=== PATIENT | female | born 1950 | race African-American/Black ===

== ENCOUNTER 2016-09-06 10:29 | Emergency (ER) | payer MEDICARE, MEDICAID ==
[~2016-09-06] VITALS: Ht 162.6 cm; Wt 118.0 kg
[~2016-09-06 10:29] MED LIST: ACET-3161; DIPH25CA83 PO; ENAL20TA; HYDR-2510
[2016-09-06] MEDS ORDERED: KETOROLAC 60MG/2ML VIAL IM ONE (11:30)
[2016-09-06 13:32] VITALS: BP 165/88
== END 2016-09-06 13:52 | disposition home or self-care (01) ==
LOC: ER 10:29
DX: M17.0 Bilateral primary osteoarthritis of knee (principal); I10 Essential (primary) hypertension; Z88.6 Allergy status to analgesic agent
CPT/HCPCS: 73560; 96372; 99284; J1885

== ENCOUNTER 2016-10-15 09:53 | Emergency (ER) | payer MEDICARE, MEDICAID ==
[~2016-10-15] VITALS: Ht 162.6 cm; Wt 121.0 kg
[2016-10-15 10:34] VITALS: BP 163/96
[2016-10-15] MEDS ORDERED: ACETAMINOPHEN 325MG TABLET PO ONE (14:15)
[2016-10-15] MEDS ORDERED: ONDANSETRON 4MG ODT PO ONE (14:30)
== END 2016-10-15 15:47 | disposition home or self-care (01) ==
LOC: ER 13:33
DX: B34.9 Viral infection, unspecified (principal); Z88.6 Allergy status to analgesic agent; Z79.899 Other long term (current) drug therapy; M19.90 Unspecified osteoarthritis, unspecified site; I10 Essential (primary) hypertension
CPT/HCPCS: 99283; Q0162

== ENCOUNTER 2017-02-06 11:34 | Inpatient (IN) | payer MEDICARE, MEDICAID ==
[~2017-02-06] VITALS: Ht 165.1 cm; Wt 113.4 kg
[2017-02-06] MEDS ORDERED: SODIUM CHLORIDE 0.9% 1,000 ML IV ONE (12:21)
[2017-02-06] MEDS ORDERED: MORPHINE SULFATE 4 MG/ML CPJ (NOT FOR IM USE) IV STA (12:21)
[2017-02-06] MEDS ORDERED: ONDANSETRON HCL 4MG/2ML VIAL IV STA (12:21)
[2017-02-06] MEDS ORDERED: FAMOTIDINE 20MG/2ML VIAL IV STA (12:21)
[2017-02-06 12:44] LABS: BASOPHILS % 0.7 % (0.0-2.0); EOSINOPHILS % 2.6 % (0.0-5.0); HEMATOCRIT. 32.5 % (36.0-48.0); HEMOGLOBIN. 10.7 g/dL (12.0-16.0); LYMPHOCYTES % 20.3 % (20.0-50.0); MEAN CORPUSCULAR HEMOGLOBIN 24.7 pg (28.0-32.0); MEAN CORPUSCULAR VOLUME 74.7 fL (81.0-99.0); MEAN PLATELET VOLUME 6.9 fl (7.4-10.4); MONOCYTES % 4.8 % (2.0-8.0); NEUTROPHILS % 71.6 % (40.0-76.0); PLATELET 218 x1000/uL (130-400); RED BLOOD CELL COUNT 4.35 mill/uL (4.2-5.4); RED CELL DISTRIBUTION WIDTH 14.7 % (11.6-14.6)
[2017-02-06 12:55] LABS: D-DIMER 0.87 mg/L FEU (<0.50); PROTHROMBIN TIME 10.9 sec (9.4-11.6)
[2017-02-06 13:01] LABS: CARBON DIOXIDE 29 mEq/L (21-32); CHLORIDE 107 mEq/L (98-107); TROPONIN I < 0.02 ng/mL (0.00-0.04)
[2017-02-06 13:29] LABS: CLARITY URINE CLEAR (CLEAR); COLOR URINE YELLOW (YELLOW); GLUCOSE URINE NEGATIVE (NEGATIVE); KETONES URINE NEGATIVE (NEGATIVE); LEUKOCYTE ESTERASE URINE 1+ (NEGATIVE); NITRITE URINE NEGATIVE (NEGATIVE); OCCULT BLOOD URINE NEGATIVE (NEGATIVE); PH URINE 6.5 (4.5-8.0); PROTEIN URINE NEGATIVE (NEGATIVE); SPECIFIC GRAVITY URINE 1.012 (1.005-1.030); UROBILINOGEN URINE 0.2 E.U./dL (0.2-1.0)
[2017-02-06 13:45] LABS: *AMPHETAMINES SCREEN URINE NEGATIVE (NEGATIVE); *BARBITURATES SCREEN URINE NEGATIVE (NEGATIVE); *BENZODIAZEPINES SCREEN URINE NEGATIVE (NEGATIVE); *COCAINE SCREEN URINE NEGATIVE (NEGATIVE); CANNABINOID URINE SCREEN NEGATIVE (NEGATIVE); METHADONE URINE SCREEN NEGATIVE (NEGATIVE); OPIATES URINE SCREEN PRESUMTIVE POSITIVE (NEGATIVE); PHENCYCLIDINE URINE SCREEN NEGATIVE (NEGATIVE)
[2017-02-06] MEDS ORDERED: METOCLOPRAMIDE HCL 10MG/2ML VIAL IV ONE (16:30)
[2017-02-06] MEDS ORDERED: MORPHINE SULFATE 4 MG/ML CPJ (NOT FOR IM USE) IV ONE (16:30)
[2017-02-06 17:00] VITALS: BP 165/78
[2017-02-06 17:10] VITALS: BP 165/75
[2017-02-06] MEDS ORDERED: DIPH25CA83 PO (17:23)
[2017-02-06] MEDS ORDERED: LISI10TA5 PO (17:23)
[2017-02-06] MEDS ORDERED: TRAM50TA3 PO (17:23)
[2017-02-06] MEDS ORDERED: HYDR-2510 PO (17:23)
[2017-02-06] MEDS ORDERED: AMLO10TA80 PO (17:23)
[2017-02-06] MEDS ORDERED: MAGNESIUM/ALUMINUM HYDROXIDE/SIMETHICONE 30ML UDC PO PRN (18:30)
[2017-02-06] MEDS ORDERED: ONDANSETRON HCL 4MG/2ML VIAL IV PRN (18:30)
[2017-02-06] MEDS ORDERED: CLONIDINE 0.1MG TABLET PO PRN (18:30)
[2017-02-06] MEDS ORDERED: IPRATROPIUM/ALBUTEROL 0.5-3(2.5)MG/3ML NEB INH PRN (18:30)
[2017-02-06] MEDS ORDERED: NA PHOS,M-B/NA PHOS,DI-BA ENEMA 118ML PR PRN (18:30)
[2017-02-06] MEDS ORDERED: GUAIFENESIN 200MG/10ML SUGAR FREE UDC PO PRN (18:30)
[2017-02-06] MEDS ORDERED: ACETAMINOPHEN 650MG/20.3ML UDC GT PRN (18:30)
[2017-02-06] MEDS ORDERED: DIPHENHYDRAMINE 25MG CAPSULE PO PRN (18:30)
[2017-02-06] MEDS ORDERED: DOCUSATE SODIUM 100MG CAPSULE PO PRN (18:30)
[2017-02-06] MEDS ORDERED: ACETAMINOPHEN 650MG SUPP PR PRN (18:30)
[2017-02-06] MEDS ORDERED: HYDROCHLOROTHIAZIDE 50MG TABLET PO SCH (18:30)
[2017-02-06] MEDS ORDERED: ACETAMINOPHEN 325MG TABLET PO PRN (18:30)
[2017-02-06] MEDS: FAMOTIDINE 20MG/2ML VIAL IV SCH (18:47)
[2017-02-06] MEDS: AMLODIPINE 10MG TABLET PO SCH (18:47)
[2017-02-06] MEDS: LISINOPRIL 10MG TABLET PO SCH (18:47)
[2017-02-06] MEDS: TRAMADOL 50MG TABLET PO PRN (18:47)
[2017-02-06 20:00] VITALS: BP 152/76
[2017-02-06] MEDS: LEVOFLOXACIN 500MG PREMIX 100 ML IV SCH (21:20)
[2017-02-06] MEDS: HYDROCHLOROTHIAZIDE 50MG TABLET PO SCH (21:20)
[2017-02-06] MEDS: SODIUM CHLORIDE 0.9% INJ 3ML FLUSH IVF SCH (21:21)
[2017-02-06] MEDS: SODIUM CHLORIDE 0.45% 1,000 ML IV SCH (21:21)
[2017-02-06 23:03] LABS: CREATINE KINASE 184 IU/L (26-192); TROPONIN I < 0.02 ng/mL (0.00-0.04)
[2017-02-06] MEDS: METOCLOPRAMIDE HCL 10MG/2ML VIAL IV SCH (23:17)
[2017-02-06] MEDS: DIPHENHYDRAMINE 50MG/ML VIAL IV PRN (23:17)
[2017-02-07] VITALS: BP 145/83
[2017-02-07] MEDS: METOCLOPRAMIDE HCL 10MG/2ML VIAL IV SCH ×4 (06:40→23:26)
[2017-02-07] MEDS: SODIUM CHLORIDE 0.9% INJ 3ML FLUSH IVF SCH ×3 (06:40→22:03)
[2017-02-07 07:47] LABS: BASOPHILS % 0.8 % (0.0-2.0); EOSINOPHILS % 1.8 % (0.0-5.0); HEMATOCRIT. 34.4 % (36.0-48.0); HEMOGLOBIN. 11.3 g/dL (12.0-16.0); LYMPHOCYTES % 29.1 % (20.0-50.0); MEAN CORPUSCULAR HEMOGLOBIN 24.8 pg (28.0-32.0); MEAN CORPUSCULAR VOLUME 75.5 fL (81.0-99.0); MEAN PLATELET VOLUME 7.4 fl (7.4-10.4); MONOCYTES % 6.9 % (2.0-8.0); NEUTROPHILS % 61.4 % (40.0-76.0); PLATELET 214 x1000/uL (130-400); RED BLOOD CELL COUNT 4.56 mill/uL (4.2-5.4); RED CELL DISTRIBUTION WIDTH 14.7 % (11.6-14.6)
[2017-02-07] MEDS: LISINOPRIL 10MG TABLET PO SCH (08:17)
[2017-02-07] MEDS: HYDROCHLOROTHIAZIDE 50MG TABLET PO SCH (08:17)
[2017-02-07] MEDS: ENOXAPARIN 40MG/0.4ML SYR SUBCUT SCH ×2 (08:17→21:00)
[2017-02-07] MEDS: FAMOTIDINE 20MG/2ML VIAL IV SCH (08:17)
[2017-02-07] MEDS: AMLODIPINE 10MG TABLET PO SCH (08:17)
[2017-02-07] MEDS: SODIUM CHLORIDE 0.45% 1,000 ML IV SCH ×2 (08:18→23:26)
[2017-02-07 08:21] LABS: CHLORIDE 103 mEq/L (98-107)
[2017-02-07 08:32] LABS: CARBON DIOXIDE 28 mEq/L (21-32); CREATINE KINASE 130 IU/L (26-192); HDL CHOLESTEROL 54 mg/dL (40-59); LDL CHOLESTEROL 99 mg/dL (5-100); TROPONIN I < 0.02 ng/mL (0.00-0.04)
[2017-02-07 08:40] VITALS: BP 140/83
[2017-02-07 12:00] VITALS: BP 136/81
[2017-02-07 16:02] VITALS: BP 127/79
[2017-02-07] MEDS: DIPHENHYDRAMINE 50MG/ML VIAL IV PRN ×2 (17:17→22:37)
[2017-02-07 20:00] VITALS: BP 196/102
[2017-02-07] MEDS: LEVOFLOXACIN 500MG PREMIX 100 ML IV SCH (22:01)
[2017-02-07] MEDS: TRAMADOL 50MG TABLET PO PRN (23:44)
[2017-02-08] VITALS: BP 176/101
[2017-02-08 04:00] VITALS: BP 132/80
[2017-02-08] MEDS: SODIUM CHLORIDE 0.9% INJ 3ML FLUSH IVF SCH ×2 (05:46→16:07)
[2017-02-08] MEDS: METOCLOPRAMIDE HCL 10MG/2ML VIAL IV SCH ×3 (05:46→17:12)
[2017-02-08] MEDS: SODIUM CHLORIDE 0.45% 1,000 ML IV SCH (08:32)
[2017-02-08] MEDS: AMLODIPINE 10MG TABLET PO SCH (08:33)
[2017-02-08] MEDS: FAMOTIDINE 20MG/2ML VIAL IV SCH (08:33)
[2017-02-08] MEDS: HYDROCHLOROTHIAZIDE 50MG TABLET PO SCH (08:33)
[2017-02-08] MEDS: LISINOPRIL 10MG TABLET PO SCH (08:33)
[2017-02-08] MEDS: ENOXAPARIN 40MG/0.4ML SYR SUBCUT SCH (08:53)
[2017-02-08] MEDS: TRAMADOL 50MG TABLET PO PRN (11:59)
[2017-02-08 14:55] VITALS: BP 126/83
[2017-02-08] MEDS ORDERED: LEVOFLOXACIN 500MG TABLET PO SCH (15:00)
[2017-02-08 16:42] VITALS: BP 117/71
== END 2017-02-08 18:50 | disposition home or self-care (01) ==
LOC: ER 12:06 → 8WST 12:26 → EDBEDREQSVC 16:17 → EDBEDREQTM 16:17 → EDBEDREQ 16:17
PROVIDERS: ADMIT Family Medicine; ATTEND Family Medicine
DX: K80.10 Calculus of gallbladder with chronic cholecystitis without obstruction (principal); Z68.41 Body mass index [BMI] 40.0-44.9, adult; I10 Essential (primary) hypertension; D63.8 Anemia in other chronic diseases classified elsewhere; M19.90 Unspecified osteoarthritis, unspecified site; Z88.6 Allergy status to analgesic agent; Z79.899 Other long term (current) drug therapy; Z88.8 Allergy status to other drugs, medicaments and biological substances
CPT/HCPCS: 36415; 71010; 74176; 76705; 80053; 80061; 80305; 81001; 82550; 83605; 83690; 83880; 84484; 85025; 85379; 85610; 87040; 87086; 93005; 93970; 96361; 96374; 96375; 99285; J1200; J1650; J1956; J2270; J2405; J2765; J3490; J7030; Q0163

== ENCOUNTER 2017-08-22 09:50 | Emergency (ER) | payer MEDICARE, MEDICAID ==
[~2017-08-22] VITALS: Ht 162.6 cm; Wt 120.0 kg
[~2017-08-22 09:50] MED LIST changes: +AMLO10TA80 PO; +HYDR-2510 PO; +LISI10TA5 PO; +TRAM50TA3 PO
[2017-08-22] MEDS ORDERED: AMLODIPINE 10MG TABLET PO ONE (10:30)
[2017-08-22] MEDS ORDERED: TRAMADOL 50MG TABLET PO ONE (10:30)
[2017-08-22 11:57] VITALS: BP 147/87
== END 2017-08-22 11:59 | disposition home or self-care (01) ==
LOC: ER 09:50
DX: M79.89 Other specified soft tissue disorders (principal); M79.604 Pain in right leg; M79.605 Pain in left leg; I10 Essential (primary) hypertension; M19.90 Unspecified osteoarthritis, unspecified site; Z88.5 Allergy status to narcotic agent; Z88.8 Allergy status to other drugs, medicaments and biological substances
CPT/HCPCS: 93970; 99284

== ENCOUNTER 2017-11-21 11:19 | Emergency (ER) | payer OTHER, MEDICAID ==
[~2017-11-21] VITALS: Ht 162.6 cm; Wt 116.0 kg
[2017-11-21] MEDS ORDERED: KETOROLAC 60MG/2ML VIAL IM ONE (17:15)
[2017-11-21] MEDS ORDERED: FAMOTIDINE 20MG/2ML VIAL IV STA (19:17)
[2017-11-21] MEDS ORDERED: SODIUM CHLORIDE 0.9% 1,000 ML IV ONE (19:17)
[2017-11-21] MEDS ORDERED: ONDANSETRON HCL 4MG/2ML VIAL IV STA (19:17)
[2017-11-21 20:32] LABS: CLARITY URINE CLEAR (CLEAR); COLOR URINE YELLOW (YELLOW); KETONES URINE NEGATIVE (NEGATIVE); LEUKOCYTE ESTERASE URINE 1+ (NEGATIVE); NITRITE URINE NEGATIVE (NEGATIVE); OCCULT BLOOD URINE NEGATIVE (NEGATIVE); PH URINE 5.5 (4.5-8.0); PROTEIN URINE NEGATIVE (NEGATIVE); SPECIFIC GRAVITY URINE 1.016 (1.005-1.030)
[2017-11-21 20:45] LABS: METHADONE URINE SCREEN NEGATIVE (NEGATIVE)
[2017-11-21 20:46] LABS: *AMPHETAMINES SCREEN URINE NEGATIVE (NEGATIVE); *BARBITURATES SCREEN URINE NEGATIVE (NEGATIVE); *BENZODIAZEPINES SCREEN URINE NEGATIVE (NEGATIVE); *COCAINE SCREEN URINE NEGATIVE (NEGATIVE); CANNABINOID URINE SCREEN NEGATIVE (NEGATIVE); OPIATES URINE SCREEN NEGATIVE (NEGATIVE); PHENCYCLIDINE URINE SCREEN NEGATIVE (NEGATIVE)
[2017-11-21] MEDS ORDERED: LEVOFLOXACIN 750MG PREMIX 150 ML IV ONE (22:15)
[2017-11-21 22:37] LABS: BASOPHILS % 0.9 % (0.0-2.0); HEMATOCRIT. 35.3 % (36.0-48.0); HEMOGLOBIN. 11.6 g/dL (12.0-16.0); LYMPHOCYTES % 27.6 % (20.0-50.0); MEAN CORPUSCULAR HEMOGLOBIN 24.7 pg (28.0-32.0); MEAN CORPUSCULAR VOLUME 74.9 fL (81.0-99.0); MEAN PLATELET VOLUME 7.1 fl (7.4-10.4); MONOCYTES % 12.1 % (2.0-8.0); NEUTROPHILS % 56.4 % (40.0-76.0); PLATELET 219 x1000/uL (130-400); RED BLOOD CELL COUNT 4.71 mill/uL (4.2-5.4); RED CELL DISTRIBUTION WIDTH 15.8 % (11.6-14.6)
[2017-11-21 22:41] LABS: INR 1.1; PROTHROMBIN TIME 11.2 sec (9.4-11.6)
[2017-11-21 22:46] LABS: CHLORIDE 105 mEq/L (98-107)
[2017-11-21 22:50] LABS: ETHANOL BLOOD < 10 mg/dL
[2017-11-21] MEDS ORDERED: DICYCLOMINE HCL 10MG CAPSULE PO ONE (23:45)
[2017-11-22] VITALS: BP 130/62
[2017-11-22] MEDS ORDERED: RALTEGRAVIR 400MG TABLET PO ONE (00:30)
[2017-11-22] MEDS ORDERED: EMTRICITABINE 200MG CAPSULE PO ONE (00:30)
[2017-11-22] MEDS ORDERED: TENOFOVIR 300MG TABLET PO ONE (00:30)
[2017-11-22] MEDS ORDERED: DICYCLOMINE HCL 20MG TABLET PO SCH (00:45)
== END 2017-11-22 01:00 | disposition home or self-care (01) ==
LOC: ER 11:19
DX: N39.0 Urinary tract infection, site not specified (principal); I10 Essential (primary) hypertension; J45.909 Unspecified asthma, uncomplicated; M19.90 Unspecified osteoarthritis, unspecified site; Z88.6 Allergy status to analgesic agent; Z79.899 Other long term (current) drug therapy; Z88.8 Allergy status to other drugs, medicaments and biological substances
CPT/HCPCS: 36415; 71045; 74176; 76705; 80053; 80305; 81003; 83605; 83690; 83880; 84484; 85025; 85610; 87040; 87086; 93005; 96361; 96365; 96372; 96375; 99285; G0482; J1885; J1956; J2405; J3490; J7030

== ENCOUNTER 2017-12-16 22:27 | Emergency (ER) | payer OTHER, MEDICAID ==
[~2017-12-16] VITALS: Ht 162.6 cm; Wt 116.0 kg
[2017-12-17] MEDS ORDERED: ACETAMINOPHEN WITH CODEINE 300/30MG TABLET PO ONE (01:15)
[2017-12-17] MEDS ORDERED: CLONIDINE 0.1MG TABLET PO ONE (02:00)
[2017-12-17 04:40] VITALS: BP 177/92
== END 2017-12-17 04:45 | disposition home or self-care (01) ==
LOC: ER 22:27
DX: G89.29 Other chronic pain (principal); M54.5 Low back pain; M54.30 Sciatica, unspecified side; I10 Essential (primary) hypertension; E11.9 Type 2 diabetes mellitus without complications; M19.90 Unspecified osteoarthritis, unspecified site; E66.9 Obesity, unspecified; Z68.41 Body mass index [BMI] 40.0-44.9, adult; Z98.51 Tubal ligation status; Z98.890 Other specified postprocedural states; Z88.6 Allergy status to analgesic agent
CPT/HCPCS: 93971; 99284

== ENCOUNTER 2018-02-03 10:52 | Emergency (ER) | payer OTHER, MEDICAID ==
[~2018-02-03] VITALS: Ht 170.2 cm; Wt 117.7 kg
[2018-02-03] MEDS ORDERED: ACETAMINOPHEN 500MG TABLET PO ONE (13:45)
[2018-02-03 14:23] LABS: BASOPHILS % 0.8 % (0.0-2.0); CHLORIDE 104 mEq/L (98-107); EOSINOPHILS % 2.6 % (0.0-5.0); HEMATOCRIT. 36.4 % (36.0-48.0); LYMPHOCYTES % 30.1 % (20.0-50.0); MEAN CORPUSCULAR HEMOGLOBIN 25.3 pg (28.0-32.0); MEAN CORPUSCULAR VOLUME 76.3 fL (81.0-99.0); MEAN PLATELET VOLUME 7.3 fl (7.4-10.4); MONOCYTES % 6.5 % (2.0-8.0); PLATELET 272 x1000/uL (130-400); PROTHROMBIN TIME 10.1 sec (9.1-11.1); RED BLOOD CELL COUNT 4.77 mill/uL (4.2-5.4); RED CELL DISTRIBUTION WIDTH 15.5 % (11.6-14.6)
[2018-02-03] MEDS ORDERED: CLONIDINE 0.1MG TABLET PO ONE (15:45)
[2018-02-03 16:32] VITALS: BP 193/102
== END 2018-02-03 16:34 | disposition home or self-care (01) ==
LOC: ER 12:45
DX: M25.562 Pain in left knee (principal); M79.605 Pain in left leg; M54.5 Low back pain; M54.30 Sciatica, unspecified side; I10 Essential (primary) hypertension; E11.9 Type 2 diabetes mellitus without complications; M19.90 Unspecified osteoarthritis, unspecified site; Z98.51 Tubal ligation status; Z88.6 Allergy status to analgesic agent; Z79.01 Long term (current) use of anticoagulants
CPT/HCPCS: 36415; 73562; 80053; 85025; 85610; 93971; 99285

== ENCOUNTER 2018-06-08 15:12 | Emergency (ER) | payer MEDICARE, MEDICAID ==
[~2018-06-08] VITALS: Ht 162.6 cm; Wt 117.0 kg
[2018-06-08 19:50] VITALS: BP 174/98
== END 2018-06-08 20:56 | disposition home or self-care (01) ==
LOC: ER 15:12
DX: R21 Rash and other nonspecific skin eruption (principal); I10 Essential (primary) hypertension; Z98.51 Tubal ligation status; Z79.899 Other long term (current) drug therapy; Z88.6 Allergy status to analgesic agent; Z88.5 Allergy status to narcotic agent
CPT/HCPCS: 99283

== ENCOUNTER 2018-07-03 10:11 | Emergency (ER) | payer MEDICARE, MEDICAID ==
[~2018-07-03] VITALS: Ht 162.6 cm; Wt 117.0 kg
[2018-07-03] MEDS ORDERED: MECLIZINE 12.5MG TABLET PO ONE (14:15)
[2018-07-03 15:14] VITALS: BP 181/75
== END 2018-07-03 15:14 | disposition home or self-care (01) ==
LOC: ER 10:31
DX: T16.2XXA Foreign body in left ear, initial encounter (principal); X58.XXXA Exposure to other specified factors, initial encounter; Y93.89 Activity, other specified; Y92.89 Other specified places as the place of occurrence of the external cause
CPT/HCPCS: 69200; 99284; J8597

== ENCOUNTER 2018-09-17 15:30 | Inpatient (IN) | payer MEDICARE, MEDICAID ==
[~2018-09-17] VITALS: Ht 162.6 cm; Wt 117.0 kg
[~2018-09-17 15:30] MED LIST changes: -ACET-3161; +ACET-3161 PO
[2018-09-17] MEDS ORDERED: FUROSEMIDE 40MG/4ML VIAL IVP ONE (16:30)
[2018-09-17 16:58] LABS: BASOPHILS % 1.4 % (0.0-2.0); EOSINOPHILS % 5.6 % (0.0-5.0); HEMATOCRIT. 34.7 % (36.0-48.0); HEMOGLOBIN. 11.3 g/dL (12.0-16.0); LYMPHOCYTES % 31.7 % (20.0-50.0); MEAN CORPUSCULAR HEMOGLOBIN 24.4 pg (28.0-32.0); MEAN CORPUSCULAR VOLUME 74.9 fL (81.0-99.0); MONOCYTES % 7.8 % (2.0-8.0); NEUTROPHILS % 53.5 % (40.0-76.0); PLATELET 214 x1000/uL (130-400); RED BLOOD CELL COUNT 4.64 mill/uL (4.2-5.4); RED CELL DISTRIBUTION WIDTH 15.2 % (11.6-14.6)
[2018-09-17 17:05] LABS: CHLORIDE 109 mEq/L (98-107)
[2018-09-17] MEDS ORDERED: MORPHINE SULFATE 4 MG/ML CPJ (NOT FOR IM USE) IV ONE (20:00)
[2018-09-17] MEDS ORDERED: IPRATROPIUM/ALBUTEROL 0.5-3(2.5)MG/3ML NEB INH PRN (20:45)
[2018-09-17] MEDS ORDERED: MAGNESIUM/ALUMINUM HYDROXIDE/SIMETHICONE 30ML UDC PO PRN (20:45)
[2018-09-17] MEDS ORDERED: LORAZEPAM 0.5MG TABLET PO PRN (20:45)
[2018-09-17] MEDS ORDERED: NA PHOS,M-B/NA PHOS,DI-BA ENEMA 118ML PR PRN (20:45)
[2018-09-17] MEDS ORDERED: NITROGLYCERIN 0.4MG TABLET SL SL PRN (20:45)
[2018-09-17] MEDS ORDERED: DIPHENHYDRAMINE 50MG/ML VIAL IV PRN (20:45)
[2018-09-17] MEDS ORDERED: ACETAMINOPHEN 325MG TABLET PO PRN (20:45)
[2018-09-17] MEDS ORDERED: DOCUSATE SODIUM 100MG CAPSULE PO PRN (20:45)
[2018-09-17] MEDS ORDERED: ONDANSETRON HCL 4MG/2ML INJ IV PRN (20:45)
[2018-09-17] MEDS ORDERED: ZOLPIDEM TARTRATE 5MG TABLET PO PRN (20:45)
[2018-09-17] MEDS ORDERED: CLONIDINE 0.1MG TABLET PO PRN (20:45)
[2018-09-17] MEDS ORDERED: TRAMADOL 50MG TABLET PO PRN (20:45)
[2018-09-17] MEDS ORDERED: GUAIFENESIN 200MG/10ML SUGAR FREE UDC PO PRN (20:45)
[2018-09-17 21:06] LABS: T4 FREE 1.11 ng/dL (0.76-1.46)
[2018-09-17 21:38] LABS: FOLIC ACID (FOLATE) SERUM 8.6 ng/mL (>5.38)
[2018-09-17] MEDS ORDERED: METOPROLOL TARTRATE 25MG TABLET PO NR (21:45)
[2018-09-17] MEDS ORDERED: SPIRONOLACTONE 25MG TABLET PO NR (21:45)
[2018-09-17] MEDS ORDERED: LISINOPRIL 20MG TABLET PO NR (21:45)
[2018-09-17 23:25] LABS: CREATINE KINASE 197 IU/L (26-192)
[2018-09-17 23:26] LABS: CREATINE KINASE MB FRACTION 2.9 ng/mL (0.5-3.6)
[2018-09-18] VITALS (7 sets, daily range): BP systolic 126–183; BP diastolic 62–98
[2018-09-18 07:13] LABS: CREATINE KINASE 211 IU/L (26-192)
[2018-09-18 07:14] LABS: CREATINE KINASE MB FRACTION 2.9 ng/mL (0.5-3.6)
[2018-09-18] MEDS: FUROSEMIDE 40MG/4ML VIAL IVP SCH ×2 (09:22→22:30)
[2018-09-18] MEDS: SPIRONOLACTONE 25MG TABLET PO SCH ×2 (09:22→22:31)
[2018-09-18] MEDS: METOPROLOL TARTRATE 25MG TABLET PO SCH ×2 (09:22→22:31)
[2018-09-18] MEDS: LISINOPRIL 20MG TABLET PO SCH ×2 (09:23→22:31)
[2018-09-18] MEDS: ENOXAPARIN 30MG/0.3ML SYR SUBCUT SCH ×2 (09:23→22:32)
[2018-09-18] MEDS: MORPHINE SULFATE 4 MG/ML CPJ (NOT FOR IM USE) IV PRN ×2 (13:34→22:45)
[2018-09-19] VITALS: BP 151/92
[2018-09-19 04:00] VITALS: BP 136/82
[2018-09-19 08:04] VITALS: BP 128/70
[2018-09-19] MEDS: ENOXAPARIN 30MG/0.3ML SYR SUBCUT SCH ×2 (08:45→21:59)
[2018-09-19] MEDS: METOPROLOL TARTRATE 25MG TABLET PO SCH ×2 (08:45→21:00)
[2018-09-19] MEDS: FUROSEMIDE 40MG/4ML VIAL IVP SCH ×2 (08:45→21:59)
[2018-09-19] MEDS: LISINOPRIL 20MG TABLET PO SCH ×2 (08:45→21:59)
[2018-09-19] MEDS: SPIRONOLACTONE 25MG TABLET PO SCH ×2 (08:45→21:59)
[2018-09-19 11:53] VITALS: BP 109/74
[2018-09-19] MEDS: MORPHINE SULFATE 4 MG/ML CPJ (NOT FOR IM USE) IV PRN ×2 (13:46→21:59)
[2018-09-19 16:00] VITALS: BP 97/64
[2018-09-19 20:00] VITALS: BP 148/72
[2018-09-20 00:25] VITALS: BP 139/76
[2018-09-20 04:00] VITALS: BP 152/82
[2018-09-20 08:00] VITALS: BP 125/69
[2018-09-20] MEDS: METOPROLOL TARTRATE 25MG TABLET PO SCH (08:14)
[2018-09-20] MEDS: LISINOPRIL 20MG TABLET PO SCH (08:16)
[2018-09-20] MEDS: FUROSEMIDE 40MG/4ML VIAL IVP SCH (08:36)
[2018-09-20] MEDS: SPIRONOLACTONE 25MG TABLET PO SCH (08:36)
[2018-09-20] MEDS: ENOXAPARIN 30MG/0.3ML SYR SUBCUT SCH (08:36)
[2018-09-20 12:43] VITALS: BP 134/73
[2018-09-20 14:43] VITALS: BP 134/73
== END 2018-09-20 16:10 | disposition home or self-care (01) | DRG 194 ==
LOC: ER 15:30 → SUPCPDRO 20:32 → 6WST 22:01 → EDBEDREQ 22:06 → EDBEDREQTM 22:06 → ENRESERV 22:16
PROVIDERS: ADMIT Internal Medicine; ATTEND Internal Medicine
DX: I11.0 Hypertensive heart disease with heart failure (principal); E66.01 Morbid (severe) obesity due to excess calories; I50.43 Acute on chronic combined systolic (congestive) and diastolic (congestive) heart failure; M19.90 Unspecified osteoarthritis, unspecified site; R26.2 Difficulty in walking, not elsewhere classified; D64.9 Anemia, unspecified; Z68.41 Body mass index [BMI] 40.0-44.9, adult; Z79.899 Other long term (current) drug therapy; Z98.51 Tubal ligation status; Z88.6 Allergy status to analgesic agent; Z88.8 Allergy status to other drugs, medicaments and biological substances
CPT/HCPCS: 36415; 71045; 80061; 82550; 82553; 82607; 82746; 83036; 83540; 83550; 83880; 84439; 84443; 84484; 93005; 93306; 93970; 99285; J1650; J1940; J2270

== ENCOUNTER 2018-10-02 23:03 | Emergency (ER) | payer MEDICARE, MEDICAID ==
[~2018-10-02] VITALS: Ht 162.6 cm; Wt 132.0 kg
[~2018-10-02 23:03] MED LIST changes: -AMLO10TA80 PO; -ENAL20TA; -HYDR-2510; -HYDR-2510 PO; -TRAM50TA3 PO
[2018-10-03] MEDS ORDERED: FUROSEMIDE 40MG/4ML VIAL IV ONE (01:30)
[2018-10-03 01:53] LABS: EOSINOPHILS % 4.9 % (0.0-5.0); HEMATOCRIT. 36.5 % (36.0-48.0); HEMOGLOBIN. 11.9 g/dL (12.0-16.0); LYMPHOCYTES % 29.5 % (20.0-50.0); MEAN CORPUSCULAR HEMOGLOBIN 24.5 pg (28.0-32.0); MEAN CORPUSCULAR VOLUME 75.1 fL (81.0-99.0); MEAN PLATELET VOLUME 7.6 fl (7.4-10.4); NEUTROPHILS % 54.6 % (40.0-76.0); PLATELET 229 x1000/uL (130-400); RED BLOOD CELL COUNT 4.86 mill/uL (4.2-5.4); RED CELL DISTRIBUTION WIDTH 15.5 % (11.6-14.6)
[2018-10-03 01:56] LABS: CHLORIDE 109 mEq/L (98-107)
[2018-10-03] MEDS ORDERED: ACETAMINOPHEN 650MG/20.3ML UDC PO ONE (03:00)
[2018-10-03 03:57] VITALS: BP 159/89
== END 2018-10-03 04:02 | disposition home or self-care (01) ==
LOC: ER 23:03
DX: M79.662 Pain in left lower leg (principal); J45.909 Unspecified asthma, uncomplicated; I11.0 Hypertensive heart disease with heart failure; I50.9 Heart failure, unspecified; Z98.51 Tubal ligation status; Z98.890 Other specified postprocedural states; Z88.5 Allergy status to narcotic agent
CPT/HCPCS: 36415; 71045; 80053; 83880; 84484; 85025; 93005; 96374; 99284; J1940

== ENCOUNTER 2018-10-16 09:18 | Emergency (ER) | payer MEDICARE, MEDICAID ==
[~2018-10-16] VITALS: Ht 162.6 cm; Wt 111.0 kg
[2018-10-16] MEDS ORDERED: SODIUM CHLORIDE 0.9% 1,000 ML IV ONE (10:35)
[2018-10-16 11:10] LABS: EOSINOPHILS % 4.8 % (0.0-5.0); HEMATOCRIT. 34.8 % (36.0-48.0); HEMOGLOBIN. 11.3 g/dL (12.0-16.0); LYMPHOCYTES % 28.1 % (20.0-50.0); MEAN CORPUSCULAR HEMOGLOBIN 24.3 pg (28.0-32.0); MEAN CORPUSCULAR VOLUME 75.1 fL (81.0-99.0); MONOCYTES % 7.4 % (2.0-8.0); NEUTROPHILS % 58.7 % (40.0-76.0); PLATELET 215 x1000/uL (130-400); RED BLOOD CELL COUNT 4.64 mill/uL (4.2-5.4); RED CELL DISTRIBUTION WIDTH 15.8 % (11.6-14.6)
[2018-10-16 11:16] LABS: CHLORIDE 108 mEq/L (98-107)
[2018-10-16 12:10] LABS: CLARITY URINE CLEAR (CLEAR); COLOR URINE YELLOW (YELLOW); KETONES URINE NEGATIVE (NEGATIVE); LEUKOCYTE ESTERASE URINE TRACE (NEGATIVE); NITRITE URINE NEGATIVE (NEGATIVE); OCCULT BLOOD URINE NEGATIVE (NEGATIVE); PH URINE 6.5 (4.5-8.0); PROTEIN URINE NEGATIVE (NEGATIVE); SPECIFIC GRAVITY URINE 1.015 (1.005-1.030)
[2018-10-16] MEDS ORDERED: IOHEXOL-300 100 ML BOTTLE ONE (13:40)
[2018-10-16 18:28] VITALS: BP 148/85
== END 2018-10-16 18:40 | disposition home or self-care (01) ==
LOC: ER 09:58
DX: R10.30 Lower abdominal pain, unspecified (principal); R19.7 Diarrhea, unspecified; I10 Essential (primary) hypertension
CPT/HCPCS: 36415; 74177; 80053; 81003; 83690; 84484; 85025; 96360; 96361; 99284; J7030; Q9967

== ENCOUNTER 2018-12-15 17:05 | Emergency (ER) | payer MEDICARE, MEDICAID ==
[~2018-12-15] VITALS: Ht 162.6 cm; Wt 117.0 kg
[2018-12-15] MEDS ORDERED: ACETAMINOPHEN 325MG TABLET PO ONE (20:15)
[2018-12-15 22:23] VITALS: BP 129/90
== END 2018-12-15 23:01 | disposition home or self-care (01) ==
LOC: ER 17:05
DX: M72.2 Plantar fascial fibromatosis (principal); M17.12 Unilateral primary osteoarthritis, left knee
CPT/HCPCS: 73560; 73630; 99283

== ENCOUNTER 2018-12-30 10:05 | Emergency (ER) | payer MEDICARE, MEDICAID ==
[~2018-12-30] VITALS: Ht 162.6 cm; Wt 117.0 kg
[2018-12-30] MEDS ORDERED: ALBUTEROL (0.083%) 2.5MG/3ML NEB HHN STA (10:52)
[2018-12-30] MEDS ORDERED: IPRATROPIUM BROMIDE (0.02%) 0.5MG/2.5ML NEB HHN STA (10:52)
[2018-12-30 11:45] VITALS: BP 170/104
== END 2018-12-30 11:46 | disposition home or self-care (01) ==
LOC: ER 10:05
DX: J06.9 Acute upper respiratory infection, unspecified (principal); I10 Essential (primary) hypertension
CPT/HCPCS: 71045; 93005; 94640; 99283; J7611

== ENCOUNTER 2019-02-01 11:08 | Inpatient (IN) | payer MEDICARE, MEDICAID ==
[~2019-02-01] VITALS: Ht 162.6 cm; Wt 123.4 kg
[2019-02-01] MEDS ORDERED: PREDNISONE 20MG TABLET PO STA (12:34)
[2019-02-01] MEDS ORDERED: ALBUTEROL (0.083%) 2.5MG/3ML NEB HHN STA (12:34)
[2019-02-01 14:19] LABS: EOSINOPHILS % 5.2 % (0.0-5.0); HEMATOCRIT. 33.8 % (36.0-48.0); MEAN CORPUSCULAR HEMOGLOBIN 24.8 pg (28.0-32.0); MEAN CORPUSCULAR VOLUME 75.6 fL (81.0-99.0); MEAN PLATELET VOLUME 7.4 fl (7.4-10.4); MONOCYTES % 7.1 % (2.0-8.0); NEUTROPHILS % 51.7 % (40.0-76.0); PLATELET 227 x1000/uL (130-400); RED BLOOD CELL COUNT 4.46 mill/uL (4.2-5.4)
[2019-02-01 14:27] LABS: CHLORIDE 108 mEq/L (98-107)
[2019-02-01] MEDS ORDERED: ONDANSETRON HCL 4MG/2ML INJ IV PRN (21:30)
[2019-02-01] MEDS ORDERED: IPRATROPIUM/ALBUTEROL 0.5-3(2.5)MG/3ML NEB HHN PRN (21:30)
[2019-02-01] MEDS ORDERED: HYDROCODONE/ACETAMINOPHEN 5/325MG TABLET PO PRN (21:30)
[2019-02-01] MEDS ORDERED: ACETAMINOPHEN 325MG TABLET PO PRN (21:30)
[2019-02-01 22:00] VITALS: BP 175/71
[2019-02-01] MEDS: CLONIDINE 0.1MG TABLET PO PRN (22:53)
[2019-02-01] MEDS: ENOXAPARIN 30MG/0.3ML SYR SUBCUT SCH (22:55)
[2019-02-02] VITALS: BP 168/70
[2019-02-02 00:23] LABS: CREATINE KINASE 163 IU/L (26-192)
[2019-02-02 04:00] VITALS: BP 168/72
[2019-02-02] MEDS: CLONIDINE 0.1MG TABLET PO PRN (05:50)
[2019-02-02 05:54] LABS: BASOPHILS % 0.4 % (0.0-2.0); HEMATOCRIT. 33.1 % (36.0-48.0); MEAN CORPUSCULAR HEMOGLOBIN 25.1 pg (28.0-32.0); MEAN CORPUSCULAR VOLUME 75.6 fL (81.0-99.0); MEAN PLATELET VOLUME 7.8 fl (7.4-10.4); MONOCYTES % 3.6 % (2.0-8.0); PLATELET 230 x1000/uL (130-400); RED BLOOD CELL COUNT 4.38 mill/uL (4.2-5.4); RED CELL DISTRIBUTION WIDTH 15.2 % (11.6-14.6)
[2019-02-02 06:19] LABS: CHLORIDE 108 mEq/L (98-107)
[2019-02-02 06:50] LABS: LDL CHOLESTEROL 119 mg/dL (5-100)
[2019-02-02 06:51] LABS: CREATINE KINASE 148 IU/L (26-192)
[2019-02-02 07:04] LABS: HDL CHOLESTEROL 68 mg/dL (40-59); T4 FREE 0.98 ng/dL (0.76-1.46)
[2019-02-02 08:00] VITALS: BP 140/93
[2019-02-02] MEDS: ENOXAPARIN 30MG/0.3ML SYR SUBCUT SCH ×2 (09:37→20:59)
[2019-02-02 12:00] VITALS: BP 126/82
[2019-02-02] MEDS ORDERED: LACTULOSE 20G/30ML UDC PO PRN (14:15)
[2019-02-02] MEDS ORDERED: BUDESONIDE 0.5MG/2ML NEB HHN SCH (14:15)
[2019-02-02] MEDS ORDERED: DIPHENHYDRAMINE 50MG/ML VIAL IV PRN (14:15)
[2019-02-02] MEDS ORDERED: FUROSEMIDE 40MG/4ML VIAL IVP NR (14:30)
[2019-02-02 15:28] LABS: BG CARBOXYHEMOGLOBIN 0.3 % (0.5-1.5); BG FRACTION INSPIRED OXYGEN 21; BG HCO3 ACT 26.4 mmol/L (22.0-26.0); BG METHEMOGLOBIN 0.2 % (0.0-1.5); BG OXYHEMOGLOBIN 96.5 % (94.0-97.0); BG PCO2 40.5 mmHg (35.0-45.0); BG PH 7.432 (7.350-7.450); BG PO2 91.8 mmHg (75.0-100.0); BG SAMPLE SITE RIGHT RADIAL; BG TOTAL HEMOGLOBIN 11.7 g/dL (12.0-18.0); BG VENT MODE ROOM AIR
[2019-02-02] MEDS ORDERED: BUDESONIDE 0.5MG/2ML NEB HHN NR (15:30)
[2019-02-02 16:00] VITALS: BP 162/99
[2019-02-02] MEDS: LORATADINE 10MG TABLET PO SCH (16:19)
[2019-02-02] MEDS: AZITHROMYCIN 500 MG TABLET PO SCH (16:19)
[2019-02-02] MEDS: FAMOTIDINE 20MG/2ML VIAL IV SCH (16:19)
[2019-02-02] MEDS: LOSARTAN POTASSIUM 25 MG TABLET PO SCH (16:20)
[2019-02-02 16:42] LABS: CLARITY URINE CLOUDY (CLEAR); COLOR URINE YELLOW (YELLOW); KETONES URINE TRACE (NEGATIVE); LEUKOCYTE ESTERASE URINE 1+ (NEGATIVE); NITRITE URINE NEGATIVE (NEGATIVE); OCCULT BLOOD URINE NEGATIVE (NEGATIVE); PROTEIN URINE NEGATIVE (NEGATIVE); SPECIFIC GRAVITY URINE 1.017 (1.005-1.030)
[2019-02-02 17:04] LABS: *AMPHETAMINES SCREEN URINE NEGATIVE (NEGATIVE); *BARBITURATES SCREEN URINE NEGATIVE (NEGATIVE); *BENZODIAZEPINES SCREEN URINE NEGATIVE (NEGATIVE); *COCAINE SCREEN URINE NEGATIVE (NEGATIVE); METHADONE URINE SCREEN NEGATIVE (NEGATIVE); OPIATES URINE SCREEN NEGATIVE (NEGATIVE)
[2019-02-02 17:05] LABS: CANNABINOID URINE SCREEN NEGATIVE (NEGATIVE); PHENCYCLIDINE URINE SCREEN NEGATIVE (NEGATIVE)
[2019-02-02] MEDS: CEFTRIAXONE 1 G PREMIX 50 ML IV SCH (17:38)
[2019-02-02] MEDS: METHYLPREDNISOLONE SOD SUCC 40 MG/ML VIAL IV SCH (17:40)
[2019-02-02 20:00] VITALS: BP 150/94
[2019-02-02] MEDS: IPRATROPIUM/ALBUTEROL 0.5-3(2.5)MG/3ML NEB HHN SCH (20:44)
[2019-02-02] MEDS: ATORVASTATIN CALCIUM 20MG TABLET PO SCH (21:00)
[2019-02-02] MEDS: MONTELUKAST SODIUM 10MG TABLET PO SCH (21:00)
[2019-02-03] VITALS: BP 130/79
[2019-02-03] MEDS: IPRATROPIUM/ALBUTEROL 0.5-3(2.5)MG/3ML NEB HHN SCH ×7 (00:49→23:46)
[2019-02-03 04:00] VITALS: BP 149/87
[2019-02-03 05:59] LABS: CHLORIDE 105 mEq/L (98-107)
[2019-02-03] MEDS: METHYLPREDNISOLONE SOD SUCC 40 MG/ML VIAL IV SCH ×2 (06:00→17:11)
[2019-02-03 06:33] LABS: BASOPHILS % 0.3 % (0.0-2.0); HEMATOCRIT. 33.8 % (36.0-48.0); HEMOGLOBIN. 11.5 g/dL (12.0-16.0); LYMPHOCYTES % 8.7 % (20.0-50.0); MEAN CORPUSCULAR HEMOGLOBIN 25.4 pg (28.0-32.0); MEAN CORPUSCULAR VOLUME 74.9 fL (81.0-99.0); MEAN PLATELET VOLUME 7.7 fl (7.4-10.4); MONOCYTES % 1.6 % (2.0-8.0); NEUTROPHILS % 89.4 % (40.0-76.0); PLATELET 267 x1000/uL (130-400); RED BLOOD CELL COUNT 4.51 mill/uL (4.2-5.4); RED CELL DISTRIBUTION WIDTH 14.6 % (11.6-14.6)
[2019-02-03 08:00] VITALS: BP 125/69
[2019-02-03] MEDS: BUDESONIDE 0.5MG/2ML NEB HHN SCH ×2 (08:30→19:53)
[2019-02-03] MEDS: FAMOTIDINE 20MG/2ML VIAL IV SCH (09:00)
[2019-02-03] MEDS: LORATADINE 10MG TABLET PO SCH (09:01)
[2019-02-03] MEDS: LOSARTAN POTASSIUM 25 MG TABLET PO SCH (09:01)
[2019-02-03] MEDS: ENOXAPARIN 30MG/0.3ML SYR SUBCUT SCH ×2 (09:01→20:58)
[2019-02-03 12:00] VITALS: BP 131/70
[2019-02-03] MEDS: CEFTRIAXONE 1 G PREMIX 50 ML IV SCH (16:00)
[2019-02-03 16:02] VITALS: BP 137/76
[2019-02-03] MEDS: AZITHROMYCIN 500 MG TABLET PO SCH (17:11)
[2019-02-03 20:00] VITALS: BP 134/62
[2019-02-03] MEDS: ATORVASTATIN CALCIUM 20MG TABLET PO SCH (20:58)
[2019-02-03] MEDS: MONTELUKAST SODIUM 10MG TABLET PO SCH (20:58)
[2019-02-04] VITALS (7 sets, daily range): BP systolic 137–181; BP diastolic 69–101
[2019-02-04] MEDS: IPRATROPIUM/ALBUTEROL 0.5-3(2.5)MG/3ML NEB HHN SCH ×4 (04:19→18:00)
[2019-02-04] MEDS: METHYLPREDNISOLONE SOD SUCC 40 MG/ML VIAL IV SCH ×2 (05:47→18:00)
[2019-02-04] MEDS: BUDESONIDE 0.5MG/2ML NEB HHN SCH (08:58)
[2019-02-04] MEDS: FAMOTIDINE 20MG/2ML VIAL IV SCH ×2 (09:00→09:15)
[2019-02-04] MEDS: LORATADINE 10MG TABLET PO SCH (09:15)
[2019-02-04] MEDS: LOSARTAN POTASSIUM 25 MG TABLET PO SCH (09:15)
[2019-02-04] MEDS: ENOXAPARIN 30MG/0.3ML SYR SUBCUT SCH ×2 (09:16→20:29)
[2019-02-04] MEDS: CEFTRIAXONE 1 G PREMIX 50 ML IV SCH (16:00)
[2019-02-04] MEDS: CLONIDINE 0.1MG TABLET PO PRN (16:35)
[2019-02-04] MEDS: AZITHROMYCIN 500 MG TABLET PO SCH (16:36)
[2019-02-04] MEDS: MONTELUKAST SODIUM 10MG TABLET PO SCH (20:29)
[2019-02-04] MEDS: ATORVASTATIN CALCIUM 20MG TABLET PO SCH (20:29)
== END 2019-02-04 20:55 | disposition home or self-care (01) | DRG 190 ==
LOC: ER 14:07 → 8WST 18:30 → ENRESERV 20:06
PROVIDERS: ADMIT Internal Medicine; ATTEND Internal Medicine
DX: J44.1 Chronic obstructive pulmonary disease with (acute) exacerbation (principal); I50.33 Acute on chronic diastolic (congestive) heart failure; J45.901 Unspecified asthma with (acute) exacerbation; Z68.42 Body mass index [BMI] 45.0-49.9, adult; I11.0 Hypertensive heart disease with heart failure; F32.9 Major depressive disorder, single episode, unspecified; D64.9 Anemia, unspecified; E78.5 Hyperlipidemia, unspecified; E86.0 Dehydration; Z88.9 Allergy status to unspecified drugs, medicaments and biological substances; Z87.891 Personal history of nicotine dependence; Z88.5 Allergy status to narcotic agent; E66.01 Morbid (severe) obesity due to excess calories
CPT/HCPCS: 36415; 36600; 71045; 80048; 80061; 80305; 81003; 82375; 82550; 82805; 83880; 84439; 84443; 84484; 93005; 94640; 97161; 99285; C1893; J0696; J1650; J1940; J2920; J3490; J7040; J7512; J7611; J7620; J7626

== ENCOUNTER 2019-03-16 17:48 | Emergency (ER) | payer MEDICARE, MEDICAID ==
[~2019-03-16] VITALS: Ht 165.1 cm; Wt 104.0 kg
[2019-03-16] MEDS ORDERED: ONDANSETRON HCL 4MG/2ML INJ IV STA (19:37)
[2019-03-16 20:45] LABS: BASOPHILS % 0.7 % (0.0-2.0); EOSINOPHILS % 1.1 % (0.0-5.0); HEMATOCRIT. 36.2 % (36.0-48.0); HEMOGLOBIN. 11.8 g/dL (12.0-16.0); LYMPHOCYTES % 20.1 % (20.0-50.0); MEAN CORPUSCULAR HEMOGLOBIN 24.6 pg (28.0-32.0); MEAN PLATELET VOLUME 7.6 fl (7.4-10.4); MONOCYTES % 7.6 % (2.0-8.0); NEUTROPHILS % 70.5 % (40.0-76.0); PLATELET 245 x1000/uL (130-400); RED BLOOD CELL COUNT 4.82 mill/uL (4.2-5.4); RED CELL DISTRIBUTION WIDTH 15.1 % (11.6-14.6)
[2019-03-16 20:46] LABS: CHLORIDE 109 mEq/L (98-107)
[2019-03-16] MEDS ORDERED: HYDROCODONE/ACETAMINOPHEN 5/325MG TABLET PO ONE (21:15)
[2019-03-16] MEDS ORDERED: KETOROLAC 30MG/ML VIAL IV ONE (21:15)
[2019-03-16 23:35] VITALS: BP 146/91
== END 2019-03-16 23:55 | disposition home or self-care (01) ==
LOC: ER 17:48
DX: R11.0 Nausea (principal); M79.605 Pain in left leg; M79.604 Pain in right leg; R53.1 Weakness; R03.0 Elevated blood-pressure reading, without diagnosis of hypertension
CPT/HCPCS: 36415; 71045; 74018; 80053; 83690; 83880; 84484; 85025; 93005; 96374; 96375; 99284; J1885; J2405

== ENCOUNTER 2019-04-29 18:40 | Emergency (ER) | payer MEDICARE, MEDICAID ==
[~2019-04-29] VITALS: Ht 162.6 cm; Wt 121.0 kg
[~2019-04-29 18:40] MED LIST changes: +ALBU90AE INH; +APIX5TAB MT; +FURO-152 MT; +FURO-152 PO; +LEVO500T2 MT; -LISI10TA5 PO; +LOSA25TA3 MT
[2019-04-29] MEDS ORDERED: DIPHENHYDRAMINE 25MG CAPSULE PO ONE (23:15)
[2019-04-29] MEDS ORDERED: KETOROLAC 60MG/2ML VIAL IM ONE (23:15)
[2019-04-29] MEDS ORDERED: PROCHLORPERAZINE MALEATE 10MG TABLET PO ONE (23:15)
[2019-04-30 02:06] VITALS: BP 145/81
== END 2019-04-30 02:09 | disposition home or self-care (01) ==
LOC: ER 18:40
DX: R51 Headache (principal); I10 Essential (primary) hypertension
CPT/HCPCS: 70450; 96372; 99284; J1885; Q0163; Q0164

== ENCOUNTER 2019-12-11 14:43 | Inpatient (IN) | payer MEDICARE, MEDICAID ==
[~2019-12-11] VITALS: Ht 160 cm; Wt 126.6 kg
[2019-12-11] MEDS ORDERED: METHYLPREDNISOLONE SOD SUCC 125 MG/2 ML VIAL IV STA (15:09)
[2019-12-11] MEDS ORDERED: ALBUTEROL 6.7GM HFA INHALER ORI ONE ×3 (15:15)
[2019-12-11 15:50] LABS: BASOPHILS % 0.5 % (0.0-2.0); EOSINOPHILS % 3.2 % (0.0-5.0); HEMATOCRIT. 36.3 % (36.0-48.0); LYMPHOCYTES % 30.5 % (20.0-50.0); MEAN CORPUSCULAR HEMOGLOBIN 25.3 pg (28.0-32.0); MEAN CORPUSCULAR VOLUME 76.1 fL (81.0-99.0); MEAN PLATELET VOLUME 6.6 fl (7.4-10.4); MONOCYTES % 7.1 % (2.0-8.0); NEUTROPHILS % 58.7 % (40.0-76.0); PLATELET 229 x1000/uL (130-400); RED BLOOD CELL COUNT 4.77 mill/uL (4.2-5.4); RED CELL DISTRIBUTION WIDTH 15.6 % (11.6-14.6)
[2019-12-11 16:00] LABS: PROTHROMBIN TIME 10.8 sec (9.6-11.0)
[2019-12-11 16:01] LABS: CHLORIDE 107 mEq/L (98-107)
[2019-12-11] MEDS ORDERED: CLOPIDOGREL 75MG TABLET PO ONE (17:30)
[2019-12-11] MEDS ORDERED: CLONIDINE 0.1MG TABLET PO ONE (21:15)
[2019-12-11] MEDS ORDERED: HYDROCODONE/ACETAMINOPHEN 5/325MG TABLET PO PRN (21:45)
[2019-12-11] MEDS ORDERED: CEFTRIAXONE 1 G PREMIX 50 ML IV SCH (21:45)
[2019-12-11] MEDS ORDERED: ACETAMINOPHEN 325MG TABLET PO PRN (21:45)
[2019-12-11] MEDS ORDERED: ONDANSETRON HCL 4MG/2ML INJ IV PRN (21:45)
[2019-12-11] MEDS: APIXABAN 5 MG TABLET PO SCH (23:42)
[2019-12-11] MEDS: METHYLPREDNISOLONE SOD SUCC 40 MG/ML VIAL IV SCH (23:42)
[2019-12-11] MEDS: FAMOTIDINE 20MG TABLET PO SCH (23:42)
[2019-12-12] MEDS ORDERED: IPRATROPIUM/ALBUTEROL 0.5-3(2.5)MG/3ML NEB HHN SCH (09:00)
[2019-12-12] MEDS: METHYLPREDNISOLONE SOD SUCC 40 MG/ML VIAL IV SCH ×3 (09:30→21:45)
[2019-12-12] MEDS: APIXABAN 5 MG TABLET PO SCH ×2 (09:30→16:41)
[2019-12-12] MEDS: MULTIVITAMINS,THER W-MINERALS TABLET PO SCH (09:31)
[2019-12-12] MEDS: ASPIRIN 81MG EC TABLET PO SCH (09:31)
[2019-12-12] MEDS: LOSARTAN POTASSIUM 50 MG TABLET PO SCH ×2 (09:31→21:36)
[2019-12-12] MEDS: FAMOTIDINE 20MG TABLET PO SCH ×2 (09:31→21:35)
[2019-12-12 11:20] LABS: BASOPHILS % 0.2 % (0.0-2.0); HEMATOCRIT. 36.7 % (36.0-48.0); HEMOGLOBIN. 11.9 g/dL (12.0-16.0); LYMPHOCYTES % 16.6 % (20.0-50.0); MEAN CORPUSCULAR HEMOGLOBIN 24.8 pg (28.0-32.0); MEAN CORPUSCULAR VOLUME 76.1 fL (81.0-99.0); MEAN PLATELET VOLUME 6.8 fl (7.4-10.4); MONOCYTES % 1.4 % (2.0-8.0); NEUTROPHILS % 81.8 % (40.0-76.0); PLATELET 241 x1000/uL (130-400); RED BLOOD CELL COUNT 4.82 mill/uL (4.2-5.4); RED CELL DISTRIBUTION WIDTH 15.5 % (11.6-14.6)
[2019-12-12 11:21] VITALS: BP 190/81
[2019-12-12 11:53] LABS: CHLORIDE 106 mEq/L (98-107)
[2019-12-12 12:00] VITALS: BP 160/87
[2019-12-12 12:00] LABS: LDL CHOLESTEROL 132 mg/dL (5-100)
[2019-12-12 12:02] LABS: HDL CHOLESTEROL 75 mg/dL (40-59)
[2019-12-12 12:04] LABS: T4 FREE 0.99 ng/dL (0.76-1.46)
[2019-12-12] MEDS ORDERED: AMLO10TA4 MT (16:34)
[2019-12-12] MEDS ORDERED: FURO-151 MT (16:34)
[2019-12-12] MEDS ORDERED: LISI10TA5 MT (16:34)
[2019-12-12 20:34] VITALS: BP 189/87
[2019-12-12] MEDS: CEFTRIAXONE 1,000 MG in DEXTROSE 5% WATER 50 ML IV SCH (21:36)
[2019-12-12] MEDS: CLONIDINE 0.1MG TABLET PO PRN (21:36)
[2019-12-13 00:15] VITALS: BP 159/102
[2019-12-13 04:00] VITALS: BP 169/89
[2019-12-13] MEDS: METHYLPREDNISOLONE SOD SUCC 40 MG/ML VIAL IV SCH ×3 (05:12→21:12)
[2019-12-13] MEDS: CLONIDINE 0.1MG TABLET PO PRN ×2 (06:33→13:33)
[2019-12-13 07:33] LABS: CHLORIDE 110 mEq/L (98-107)
[2019-12-13 07:42] LABS: BASOPHILS % 0.3 % (0.0-2.0); HEMATOCRIT. 38.5 % (36.0-48.0); HEMOGLOBIN. 12.5 g/dL (12.0-16.0); LYMPHOCYTES % 10.3 % (20.0-50.0); MEAN CORPUSCULAR HEMOGLOBIN 25.1 pg (28.0-32.0); MEAN PLATELET VOLUME 7.6 fl (7.4-10.4); MONOCYTES % 2.2 % (2.0-8.0); NEUTROPHILS % 87.2 % (40.0-76.0); PLATELET 244 x1000/uL (130-400); RED CELL DISTRIBUTION WIDTH 15.5 % (11.6-14.6)
[2019-12-13 08:00] VITALS: BP 153/103
[2019-12-13] MEDS: APIXABAN 5 MG TABLET PO SCH ×2 (08:45→17:47)
[2019-12-13] MEDS: ASPIRIN 81MG EC TABLET PO SCH (08:45)
[2019-12-13] MEDS: LOSARTAN POTASSIUM 50 MG TABLET PO SCH ×2 (08:45→21:12)
[2019-12-13] MEDS: MULTIVITAMINS,THER W-MINERALS TABLET PO SCH (08:45)
[2019-12-13] MEDS ORDERED: LISINOPRIL 10MG TABLET PO SCH (10:30)
[2019-12-13] MEDS ORDERED: ALBUTEROL 6.7GM HFA INHALER ORI PRN (11:00)
[2019-12-13 12:00] VITALS: BP 169/85
[2019-12-13] MEDS: FAMOTIDINE 20MG TABLET PO SCH ×2 (13:32→21:12)
[2019-12-13] MEDS: AMLODIPINE 10MG TABLET PO SCH (13:32)
[2019-12-13] MEDS ORDERED: HYDRALAZINE HCL 50MG TABLET PO SCH (14:00)
[2019-12-13] MEDS ORDERED: LACTULOSE 20G/30ML UDC PO PRN ×2 (14:00→14:15)
[2019-12-13] MEDS ORDERED: LORAZEPAM 2MG/ML CPJ IV PRN ×2 (14:00→14:15)
[2019-12-13] MEDS ORDERED: DIPHENHYDRAMINE 50MG/ML VIAL IV PRN ×2 (14:00→14:15)
[2019-12-13] MEDS ORDERED: FUROSEMIDE 40MG/4ML VIAL IVP SCH (14:15)
[2019-12-13] MEDS ORDERED: FUROSEMIDE 40MG/4ML VIAL IVP ONE (14:15)
[2019-12-13] MEDS: HYDRALAZINE HCL 50MG TABLET PO SCH ×2 (14:30→21:12)
[2019-12-13] MEDS ORDERED: ALBUTEROL 6.7GM HFA INHALER ORI SCH (15:00)
[2019-12-13 15:30] LABS: BG BASE EXCESS 2.4 mmol/L (-2.0-2.0); BG CARBOXYHEMOGLOBIN 0.3 % (0.5-1.5); BG DEOXYHEMOGLOBIN 3.5 % (0.0-5.0); BG FRACTION INSPIRED OXYGEN 21; BG HCO3 ACT 26.8 mmol/L (22.0-26.0); BG METHEMOGLOBIN 0.2 % (0.0-1.5); BG OXYGEN SATURATION 96.5 % (92.0-98.5); BG PCO2 40.5 mmHg (35.0-45.0); BG PH 7.438 (7.350-7.450); BG PO2 83.5 mmHg (75.0-100.0); BG SAMPLE SITE LEFT RADIAL; BG TOTAL HEMOGLOBIN 12.8 g/dL (12.0-18.0); BG VENT MODE ROOM AIR
[2019-12-13 16:00] VITALS: BP 111/81
[2019-12-13 20:00] VITALS: BP 167/75
[2019-12-13] MEDS: CEFTRIAXONE 1,000 MG in DEXTROSE 5% WATER 50 ML IV SCH (21:11)
[2019-12-14] VITALS: BP 171/89
[2019-12-14] MEDS: CLONIDINE 0.1MG TABLET PO PRN (01:06)
[2019-12-14 04:00] VITALS: BP 152/88
[2019-12-14] MEDS: METHYLPREDNISOLONE SOD SUCC 40 MG/ML VIAL IV SCH ×2 (05:40→13:39)
[2019-12-14] MEDS: HYDRALAZINE HCL 50MG TABLET PO SCH (05:41)
[2019-12-14 06:18] LABS: CLARITY URINE CLEAR (CLEAR); COLOR URINE YELLOW (YELLOW); KETONES URINE NEGATIVE (NEGATIVE); LEUKOCYTE ESTERASE URINE NEGATIVE (NEGATIVE); NITRITE URINE NEGATIVE (NEGATIVE); OCCULT BLOOD URINE NEGATIVE (NEGATIVE); PH URINE 5.5 (4.5-8.0); PROTEIN URINE NEGATIVE (NEGATIVE); SPECIFIC GRAVITY URINE 1.015 (1.005-1.030); UROBILINOGEN URINE 0.2 E.U./dL (0.2-1.0)
[2019-12-14 06:51] LABS: HEMATOCRIT 36.9 % (36.0-48.0); HEMOGLOBIN 12.2 g/dL (12.0-16.0); MEAN CORPUSCULAR HEMOGLOBIN 24.9 pg (28.0-32.0); MEAN CORPUSCULAR VOLUME 75.3 fL (81.0-99.0); PLATELET 256 x1000/uL (130-400); RED CELL DISTRIBUTION WIDTH 15.5 % (11.6-14.6)
[2019-12-14 07:45] VITALS: BP 180/99
[2019-12-14] MEDS: ASPIRIN 81MG EC TABLET PO SCH (08:05)
[2019-12-14] MEDS: APIXABAN 5 MG TABLET PO SCH ×2 (08:25→17:26)
[2019-12-14] MEDS: LOSARTAN POTASSIUM 50 MG TABLET PO SCH (08:26)
[2019-12-14] MEDS: AMLODIPINE 10MG TABLET PO SCH (08:26)
[2019-12-14] MEDS: FAMOTIDINE 20MG TABLET PO SCH (08:26)
[2019-12-14] MEDS: MULTIVITAMINS,THER W-MINERALS TABLET PO SCH (08:28)
[2019-12-14] MEDS ORDERED: FUROSEMIDE 40MG/4ML VIAL IVP SCH (09:00)
[2019-12-14] MEDS ORDERED: HYDRALAZINE 20MG/ML VIAL IV NR (11:00)
[2019-12-14 11:58] VITALS: BP 178/104
[2019-12-14] MEDS ORDERED: HYDRALAZINE HCL 100MG TABLET PO SCH (14:00)
[2019-12-14] MEDS ORDERED: LOSA50TA3 MT (14:06)
[2019-12-14] MEDS ORDERED: AMLO10TA4 MT (14:06)
[2019-12-14] MEDS ORDERED: IPRA3AMP9 NEB (14:06)
[2019-12-14] MEDS ORDERED: FLUT1DIS3 INH (14:06)
[2019-12-14] MEDS ORDERED: P20 PO (14:06)
[2019-12-14] MEDS ORDERED: HYDR-4135 PO (14:06)
[2019-12-14] MEDS ORDERED: FURO-151 MT (14:06)
[2019-12-14 16:03] VITALS: BP 154/91
[2019-12-14 16:50] VITALS: BP 154/91
[2020-02-17] MEDS ORDERED: IPRA3AMP9 NEB (15:55)
[2020-02-17] MEDS ORDERED: DILT60TA35 PO (15:55)
[2020-02-17] MEDS ORDERED: APIX5TAB MT (15:55)
[2020-02-17] MEDS ORDERED: HYDR-4135 MT (15:55)
[2020-02-17] MEDS ORDERED: P20 PO (15:55)
[2020-02-17] MEDS ORDERED: FURO-151 MT (15:55)
[2020-02-17] MEDS ORDERED: CLON0.1T PO (15:55)
== END 2019-12-14 18:20 | disposition home or self-care (01) | DRG 190 ==
LOC: ER 14:43 → MICUSO 18:01 → 7WST 12-12 05:30 → 8WST 12-13 23:51
PROVIDERS: ADMIT Internal Medicine; ATTEND Internal Medicine
DX: J44.1 Chronic obstructive pulmonary disease with (acute) exacerbation (principal); I50.43 Acute on chronic combined systolic (congestive) and diastolic (congestive) heart failure; I48.20 Chronic atrial fibrillation, unspecified; D68.59 Other primary thrombophilia; Z68.42 Body mass index [BMI] 45.0-49.9, adult; I11.0 Hypertensive heart disease with heart failure; E78.5 Hyperlipidemia, unspecified; I16.0 Hypertensive urgency; I44.7 Left bundle-branch block, unspecified; Z20.828 Contact with and (suspected) exposure to other viral communicable diseases; M19.90 Unspecified osteoarthritis, unspecified site; E87.70 Fluid overload, unspecified; E66.9 Obesity, unspecified; Z79.899 Other long term (current) drug therapy; Z79.82 Long term (current) use of aspirin; Z78.9 Other specified health status; Z88.6 Allergy status to analgesic agent; Z79.01 Long term (current) use of anticoagulants; Z79.51 Long term (current) use of inhaled steroids; Z99.81 Dependence on supplemental oxygen; Z88.8 Allergy status to other drugs, medicaments and biological substances; Z88.5 Allergy status to narcotic agent
CPT/HCPCS: 36415; 36600; 71045; 80048; 80053; 80061; 81003; 82375; 82805; 83036; 83880; 84439; 84443; 84484; 85025; 85027; 87070; 87430; 87635; 93005; 93306; 93970; 94618; 94640; 96374; 99285; J0360; J0696; J1940; J2920; J2930; J7060

== ENCOUNTER 2020-12-12 12:05 | Emergency (ER) | payer MEDICARE, MEDICAID ==
[~2020-12-12] VITALS: Ht 162.6 cm; Wt 118.0 kg
[~2020-12-12 12:05] MED LIST changes: +AMLO10TA4 MT; +CLON0.1T PO; +DILT60TA35 PO; +FLUT1DIS3 INH; +FURO-151 MT; -FURO-152 MT; -FURO-152 PO; +HYDR-4135 MT; +IPRA3AMP9 NEB; -LEVO500T2 MT; -LOSA25TA3 MT; +P20 PO
[2020-12-12 13:16] VITALS: BP 114/93
[2020-12-12] MEDS ORDERED: DIPH28.34 TP (17:35)
== END 2020-12-12 18:45 | disposition home or self-care (01) ==
LOC: ER 12:05
DX: L29.9 Pruritus, unspecified (principal); F12.90 Cannabis use, unspecified, uncomplicated; J44.9 Chronic obstructive pulmonary disease, unspecified; I10 Essential (primary) hypertension; Z88.8 Allergy status to other drugs, medicaments and biological substances; Z88.6 Allergy status to analgesic agent; Z79.899 Other long term (current) drug therapy; Z98.890 Other specified postprocedural states
CPT/HCPCS: 99281; 99283

== ENCOUNTER 2021-08-19 11:18 | Emergency (ER) | payer MEDICARE ==
[~2021-08-19] VITALS: Ht 172.7 cm; Wt 125.0 kg
[~2021-08-19 11:18] MED LIST changes: +AMI2 PO; -CLON0.1T PO; -HYDR-4135 MT
[2021-08-19 13:25] LABS: BASOPHILS % 0.8 % (0.0-2.0); HEMATOCRIT. 33.5 % (36.0-48.0); HEMOGLOBIN. 10.7 g/dL (12.0-16.0); LYMPHOCYTES % 28.9 % (20.0-50.0); MEAN CORPUSCULAR HEMOGLOBIN 24.4 pg (28.0-32.0); MEAN CORPUSCULAR VOLUME 76.2 fL (81.0-99.0); MEAN PLATELET VOLUME 7.5 fl (7.4-10.4); NEUTROPHILS % 59.3 % (40.0-76.0); PLATELET 209 x1000/uL (130-400); RED BLOOD CELL COUNT 4.39 mill/uL (4.2-5.4); RED CELL DISTRIBUTION WIDTH 16.1 % (11.6-14.6)
[2021-08-19 13:33] LABS: CHLORIDE 113 mEq/L (98-107)
[2021-08-19] MEDS ORDERED: ALBUTEROL (0.083%) 2.5MG/3ML NEB HHN STA (16:38)
[2021-08-19] MEDS ORDERED: IPRATROPIUM BROMIDE (0.02%) 0.5MG/2.5ML NEB HHN STA (16:38)
[2021-08-19] MEDS ORDERED: ACETAMINOPHEN 325MG TABLET PO ONE (17:30)
[2021-08-19] MEDS ORDERED: KETOROLAC 15MG/ML VIAL IV ONE (18:30)
[2021-08-19 21:23] LABS: CLARITY URINE CLEAR (CLEAR); COLOR URINE YELLOW (YELLOW); KETONES URINE NEGATIVE (NEGATIVE); LEUKOCYTE ESTERASE URINE NEGATIVE (NEGATIVE); NITRITE URINE NEGATIVE (NEGATIVE); OCCULT BLOOD URINE NEGATIVE (NEGATIVE); PROTEIN URINE NEGATIVE (NEGATIVE); SPECIFIC GRAVITY URINE 1.014 (1.005-1.030); UROBILINOGEN URINE 0.2 E.U./dL (0.2-1.0)
[2021-08-19 23:09] VITALS: BP 163/86
== END 2021-08-19 23:15 | disposition home or self-care (01) ==
LOC: ER 11:18
DX: G89.29 Other chronic pain (principal); M25.561 Pain in right knee; R06.00 Dyspnea, unspecified; M79.18 Myalgia, other site; I11.0 Hypertensive heart disease with heart failure; I50.9 Heart failure, unspecified; I44.7 Left bundle-branch block, unspecified; I48.91 Unspecified atrial fibrillation; D72.819 Decreased white blood cell count, unspecified; R79.89 Other specified abnormal findings of blood chemistry
CPT/HCPCS: 36415; 71045; 80053; 81003; 83880; 84484; 85025; 93005; 94640; 96374; 99285; J1885